=== PATIENT | male | born 1985 | race American Indian/Alaskan Native ===

== ENCOUNTER 2022-07-29 20:47 | Emergency (ER) | payer OTHER ==
[~2022-07-29] VITALS: Ht 167.6 cm; Wt 103.9 kg
[2022-07-29 21:50] VITALS: BP 128/75
--- NOTE | 2022-07-29 21:53 | NUR ---
TO LOBBY A/W BED AMBULATORY
--- NOTE | 2022-07-29 22:15 | NUR ---
seen and examined by
[2022-07-29] MEDS ORDERED: ACETAMINOPHEN 325 MG TAB PO ONE (22:20)
[2022-07-29 22:45] VITALS: BP 125/78
[2022-07-29] MEDS ORDERED: CYCL-711 PO (23:30)
[2022-07-29] MEDS ORDERED: IBUP-2213 PO (23:30)
--- NOTE | 2022-07-29 23:45 | NUR ---
Patient discharged with v/s stable. Written and verbal after care instructions given and explained. Patient alert, oriented and verbalized understanding of instructions. Ambulatory with steady gait. All questions addressed prior to discharge. ID band removed. Patient advised to follow up with PMD. Rx of flexeril,ibuprofen given. Patient educated on indication of medication including possible reaction and side effects. Opportunity to ask questions provided and answered.
== END 2022-07-29 23:45 | disposition home or self-care (01) ==
LOC: MED 20:47
DX: S16.1XXA Strain of muscle, fascia and tendon at neck level, initial encounter (principal); S09.90XA Unspecified injury of head, initial encounter; M79.10 Myalgia, unspecified site; R42 Dizziness and giddiness; Z79.899 Other long term (current) drug therapy; V89.2XXA Person injured in unspecified motor-vehicle accident, traffic, initial encounter; Y93.89 Activity, other specified; Y92.89 Other specified places as the place of occurrence of the external cause; Y99.8 Other external cause status
CPT/HCPCS: 70450; 99284